=== PATIENT | female | born 1995 | race Caucasian/White ===

== ENCOUNTER 2022-05-26 18:04 | Outpatient (REF) | payer MEDICAID, SELFPAY ==
[2022-05-26 19:23] LABS: Bilirubin Negative (Negative); Blood Small (Negative); Clarity Clear (Clear); Glucose Negative (Negative); Ketones Negative (Negative); Leukocyte Esterase Moderate (Negative); Nitrite Negative (Negative); Urobilinogen 0.2 EU/dL (Up TO 0.2)
[2022-05-26 19:42] LABS: Bacteria Few HPF (Negative); C & S Indicated? Yes; Crystals Negative HPF (Negative); Epithelial Cells Rare HPF (Negative); Mucus Negative (Negative); WBC 20-50 HPF (0-5)
== END 2022-05-26 18:05 | disposition home or self-care (01) ==
LOC: NCHCN 18:04
PROVIDERS: Visit Provider Nurse Practitioner Family
DX: R30.0 Dysuria (principal)
CPT/HCPCS: 87077; 81003; 81015; 87086; 87186

== ENCOUNTER 2023-09-14 17:39 | Outpatient (REF) | payer MEDICAID, SELFPAY ==
[2023-09-14 19:07] LABS: TSH (W/Ref FT4) 0.97 uIU/mL (0.36-3.74)
== END 2023-09-14 17:40 | disposition home or self-care (01) ==
LOC: NCHCN 17:39
PROVIDERS: Visit Provider Nurse Practitioner Family
DX: R53.83 Other fatigue (principal)
CPT/HCPCS: 84443

== ENCOUNTER 2024-11-21 20:01 | Outpatient (REF) | payer MEDICAID, SELFPAY ==
[2024-11-21 19:52] LABS: ALT 31 U/L (14-59); AST 24 U/L (15-37); Albumin 3.9 g/dL (3.4-5.0); Alkaline Phosphatase 49 U/L (46-116); BUN 17 mg/dL (7-18); Bilirubin, Total 0.3 mg/dL (0.2-1.0); Calcium 9.9 mg/dL (8.5-10.1); Chloride 105 mmol/L (98-107); Estimated GFR 79.19 (mL/min/1.73m2); Glucose 86 mg/dL (74-106); Potassium 4.2 mmol/L (3.5-5.1); Sodium 142 mmol/L (136-145); Total Protein 7.2 g/dL (6.4-8.2)
== END 2024-11-21 20:02 | disposition home or self-care (01) ==
LOC: NCHCN 20:01
PROVIDERS: Visit Provider Nurse Practitioner Family
DX: F90.9 Attention-deficit hyperactivity disorder, unspecified type (principal)
CPT/HCPCS: 80053

== ENCOUNTER 2025-06-20 16:27 | Outpatient (REF) | payer MEDICAID, SELFPAY ==
[2025-06-20 21:44] LABS: Anion Gap 10.3 mmol/L (3-11); BUN 18 mg/dL (9-23); CO2 24.7 mmol/L (20.0-31.0); Calcium 9.2 mg/dL (8.3-10.6); Chloride 107 mmol/L (98-107); Glucose 82 mg/dL (74-106); Potassium 4.0 mmol/L (3.5-5.1); Sodium 142 mmol/L (136-145)
== END 2025-06-20 16:28 | disposition home or self-care (01) ==
LOC: NCHCN 16:27
PROVIDERS: Visit Provider Nurse Practitioner Family
DX: L70.0 Acne vulgaris (principal)
CPT/HCPCS: 80048